=== PATIENT | male | born 1955 | race Caucasian/White ===

== ENCOUNTER 2017-03-27 07:28 | Day surgery (SDC) | payer BC ==
[~2017-03-27] VITALS: Ht 177.8 cm; Wt 94.3 kg
[~2017-03-27 07:28] MED LIST: DHEA50 MG PO; DIOVAN320 MG PO; LIPITOR20 MG PO; LOPRESSOR50 MG PO; MOTRIN IB200 MG PO; NORVASC10 MG PO; TYLENOL EXTRA500 MG PO; VITAMIN D32000 UNI1 PO
[2017-03-27 08:32] VITALS: BP 199/89
[2017-03-27] MEDS ORDERED: NORCO 5/3251 TABLET PO (08:51)
[2017-03-27 08:52] LABS: ANION GAP 9 MEQ/L (2-14); CHLORIDE 103 MEQ/L (99-109); GFR ESTIMATE (CALCULATED) 51 mL/min/; GLUCOSE 93 mg/dL (70-99); SAMPLE HEMOLYSIS CHECK 0; SAMPLE ICTERIC CHECK 0; SAMPLE LIPEMIA CHECK 0; SODIUM 139 MEQ/L (136-147); UREA NITROGEN (BUN) 20 mg/dL (9-23)
[2017-03-27 09:42] VITALS: BP 154/70
[2017-03-27 10:42] VITALS: BP 120/64; BP 154/70
== END 2017-03-27 11:55 | disposition home or self-care (01) ==
LOC: SDC 07:28
PROVIDERS: Surgery
PROC: 0WUF0JZ Supplement Abdominal Wall with Synthetic Substitute, Open Approach (ICD-10-PCS; principal; 2017-03-27)
DX: K43.9 Ventral hernia without obstruction or gangrene (principal); I10 Essential (primary) hypertension; E78.5 Hyperlipidemia, unspecified; R09.89 Other specified symptoms and signs involving the circulatory and respiratory systems; Z88.0 Allergy status to penicillin; Z88.2 Allergy status to sulfonamides; Z87.891 Personal history of nicotine dependence
CPT/HCPCS: 80048; 93005; C1781; J0690; J1885; J2250; J3010; S0020